=== PATIENT | male | born 1950 | race Caucasian/White ===

== ENCOUNTER 2017-04-03 13:43 | Emergency (ER) | payer MEDICAID ==
[~2017-04-03] VITALS: Ht 170.2 cm; Wt 68.9 kg
[2017-04-03] MEDS ORDERED: KETOROLAC 30 MG/ML VIAL. IM ONE (15:00)
--- NOTE | 2017-04-03 15:14 | RAD ---
Left hip, 2 views, 04/03/2017: History: Pain after a fall No fracture or dislocation is identified. There is considerable disc space narrowing with subchondral sclerosis and spurring. Extensive arterial calcifications are present. IMPRESSION: 1. Moderate degenerative change at the left hip joint. 2. No acute bony abnormality is detected.
--- NOTE | 2017-04-03 15:19 | PHYS DOC ---
Past History Past Medical History: Anxiety, Depression, Hypertension, [place] Past Surgical History: Lumbar Laminectomy, Other Alcohol Use: Occasionally Drug Use: None Adult General Chief Complaint Chief Complaint: HIP PAIN HPI HPI 66-year-old male with a history of coronary artery disease anxiety and depression as well as chronic hip pain with a previous MRI that showed arthritis only. Patient now presents to the emergency department for a second opinion regarding his left hip pain. Patient states he recently moved to town and he is homeless and staying in a long-term. Some friends at the long-term heard about his chronic hip pain and suggested that he come to the emergency department for a second opinion so he called EMS. Patient is very cheerful and states he is not depressed at all and definitely not suicidal because he has gotten a new job and he is the beginning of this new employment opportunity. She did not suffer any new injury and states that he has been ambulatory without difficulty but he knows he has severe arthritis in that hip as previously diagnosed. He continues to be sore Review of Systems Review of Systems Constitutional: Denies fever or chills [] Eyes: Denies change in visual acuity, redness, or eye pain [] HENT: Denies nasal congestion or sore throat [] Respiratory: Denies cough or shortness of breath [] Cardiovascular: No additional information not addressed in HPI [] GI: Denies abdominal pain, nausea, vomiting, bloody stools or diarrhea [] : Denies dysuria or hematuria [] Musculoskeletal: Denies back pain or joint pain [] Integument: Denies rash or skin lesions [] Neurologic: Denies headache, focal weakness or sensory changes [] Endocrine: Denies polyuria or polydipsia [] Current Medications Current Medications Current Medications Medications (Trade) Dose Ordered Sig/[facility] Start Time Stop Time Status Last Admin Dose Admin Ketorolac Tromethamine (Toradol) 30 mg 1X ONCE 04/03/17 15:00 04/03/17 15:01 DC 04/03/17 14:58 30 MG Allergies Allergies Allergies Coded Allergies Type Severity Reaction Last Updated Verified No Known Drug Allergies 04/03/17 No Physical Exam Physical Exam Well-appearing no acute distress unremarkable exam including nontender stable pelvis and nontender hips bilaterally. No pain with internal and external rotation of either leg or with axial loading or normal range of motion. No shortening or external rotation and no asymmetry of the lower extremities. Constitutional: Well developed, well nourished, no acute distress, non-toxic appearance. [] HENT: Normocephalic, atraumatic, bilateral external ears normal, oropharynx moist, no oral exudates, nose normal. [] Eyes: PERRLA, EOMI, conjunctiva normal, no discharge. [] Neck: Normal range of motion, no tenderness, supple, no stridor. [] Cardiovascular:Heart rate regular rhythm, no murmur [] Lungs & Thorax: Bilateral breath sounds clear to auscultation [] Abdomen: Bowel sounds normal, soft, no tenderness, no masses, no pulsatile masses. [] Skin: Warm, dry, no erythema, no rash. [] Back: No tenderness, no CVA tenderness. [] Extremities: No tenderness, no cyanosis, no clubbing, ROM intact, no edema. [] Neurologic: Alert and oriented X 3,no focal deficits noted. [] Psychologic: Affect normal, judgement normal, mood normal. [] Current Patient Data Vital Signs Vital Signs Date Time Temp Pulse Resp B/P (MAP) Pulse Ox O2 Delivery O2 Flow Rate FiO2 04/03/17 15:00 80 16 118/59 (78) 96 Room Air 04/03/17 13:45 98.5 EKG EKG [] Radiology/Procedures Radiology/Procedures X-ray left hip with chronic bony changes consistent with significant osteoarthritis but no acute disease no acute bony injury deformity or lesion. Interpreted by co Course & Med Decision Making Course & Med Decision Making Pertinent Labs and Imaging studies reviewed. (See chart for details) Signs and symptoms consistent with pain from arthritis. X-rays with no acute bony abnormality and advanced osteoarthritis of the left hip joint. No Further workup or treatment indicated. For some reason EMS mention something about suicidal ideation however is appears to be a miscommunication as the patient is abundantly clear that he is not depressed or suicidal and that he called EMS for a second opinion about his worsening chronic hip pain. These were to follow up with his PCP for reevaluation and referral to orthopedics to discuss treatment options as needed. Patient agrees with outpatient follow-up and strict return precautions given [] Dragon Disclaimer Dragon Disclaimer This chart was dictated in whole or in part using Voice Recognition software in a busy, high-work load, and often noisy Emergency Department environment. It may contain unintended and wholly unrecognized errors or omissions. Departure Departure: Impression: Primary Impression: Hip pain, left Additional Impression: Patient requests second opinion Disposition: 01 HOME, SELF-CARE Condition: GOOD Patient Instructions: Hip Pain, Osteoarthritis Additional Instructions: As you described your chronic left hip pain has been worked up extensively including a prior MRI as you mention the results of which were remarkable only for severe arthritis. Your exacerbation of discomfort recently is likely a result of your osteoarthritis, as this is by definition a progressively worsening process over a chronic timeframe. Take 800 mg of ibuprofen every 6 hours as needed for discomfort. He can also take Tylenol if necessary. Follow- up with your doctor for reevaluation and referral to an orthopedic doctor to discuss possible treatment options for your chronic severe hip arthritis. Problem Qualifiers SUKUMAR AGOSTO MD Apr 03, 2017 15:19
[2017-04-03 16:17] VITALS: BP 125/58
== END 2017-04-03 16:50 | disposition home or self-care (01) ==
LOC: ER 13:43
DX: M25.552 Pain in left hip (principal); G89.29 Other chronic pain; I10 Essential (primary) hypertension; I25.2 Old myocardial infarction
CPT/HCPCS: 73502; 96372; 99284; J1885

== ENCOUNTER 2017-04-10 12:22 | Emergency (ER) | payer MEDICAID ==
[~2017-04-10] VITALS: Ht 170.2 cm; Wt 68.9 kg
[2017-04-10] MEDS ORDERED: IV NORMAL SALINE 1,000ML 1,000 ML IV ONE (12:30)
--- NOTE | 2017-04-10 12:40 | PHYS DOC ---
Past History Past Medical History: Anxiety, Depression, Hypertension, [place] Past Surgical History: Lumbar Laminectomy, Other Alcohol Use: Occasionally Drug Use: None Adult General Chief Complaint Chief Complaint: SUICDAL IDEATION HPI HPI Patient is a 66-year-old male presenting to the emergency department via EMS for evaluation of suicidal ideation. He says that if he does not get help that he will kill himself. He says that he has tried harming himself in the past by overdosing approximately 10 years ago and he says his plan to kill himself is cutting his wrists. Patient was seen here on April 03 for hip pain and EMS reports that he was seen at [place] yesterday for suicidal ideation and was discharged with prescriptions for some medications. He shouldn't says that he has no money despite getting Social Security check of almost $900 on the of last month. He is living in a homeless long-term but says that he is out of money because he is paying rent for a place in [place]. I asked him why he is paying rent for a place [place] if he is homeless and he says it is because his dad several months ago and he has been spitting time with him but has stayed in this area since that time. 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 Patient is obviously intoxicated with heavy smell of alcohol. I asked him why he will spend the money to drink alcohol but not fill his 4 dollar medications and he is quite upset and hostile towards me. Review of Systems Review of Systems Constitutional: Denies fever or chills [] Eyes: Denies change in visual acuity, redness, or eye pain [] HENT: Denies nasal congestion or sore throat [] Respiratory: Denies cough or shortness of breath [] Cardiovascular: No additional information not addressed in HPI [] GI: Denies abdominal pain, nausea, vomiting, bloody stools or diarrhea [] : Denies dysuria or hematuria [] Musculoskeletal: Denies back pain. Hip joint pain [] Integument: Denies rash or skin lesions [] Neurologic: Denies headache, focal weakness or sensory changes [] Current Medications Current Medications Current Medications Medications (Trade) Dose Ordered Sig/[facility] Start Time Stop Time Status Last Admin Dose Admin Sodium Chloride 1,000 ml @ 1,000 mls/hr 1X ONCE 04/10/17 12:30 04/10/17 13:29 UNV Allergies Allergies Allergies Coded Allergies Type Severity Reaction Last Updated Verified No Known Drug Allergies 04/03/17 No Physical Exam Physical Exam Constitutional: Well developed, well nourished, no acute distress, non-toxic appearance. [] HENT: Normocephalic, atraumatic, bilateral external ears normal, oropharynx moist, no oral exudates, nose normal. [] Eyes: PERRLA, EOMI, conjunctiva normal, no discharge. [] Neck: Normal range of motion, no tenderness, supple, no stridor. [] Cardiovascular:Heart rate regular rhythm, no murmur [] Lungs & Thorax: Bilateral breath sounds clear to auscultation [] Abdomen: Bowel sounds normal, soft, no tenderness, no masses, no pulsatile masses. [] Skin: Warm, dry, no erythema, no rash. [] Back: No tenderness, no CVA tenderness. [] Extremities: No tenderness, no cyanosis, no clubbing, ROM intact, no edema. [] Neurologic: Alert and oriented X 3, normal motor function, normal sensory function, no focal deficits noted. [] Psychologic: confrontational, + SI EKG EKG [] Radiology/Procedures Radiology/Procedures [] Course & Med Decision Making Course & Med Decision Making Patient is medically cleared from my standpoint and will get a psychiatric assessment. Patient denied SI to psych. They cleared him from psych perspective. Patient is wanting me to RX pain meds. I am not willing to do this given his OD intentions in past and questionable history. Will DC in stable condition. Dragon Disclaimer Dragon Disclaimer This chart was dictated in whole or in part using Voice Recognition software in a busy, high-work load, and often noisy Emergency Department environment. It may contain unintended and wholly unrecognized errors or omissions. Departure Departure: Impression: Primary Impression: Suicidal ideations Additional Impression: Alcohol abuse Disposition: HOME, SELF-CARE Condition: STABLE Referrals: PCP,NO (PCP) Patient Instructions: Suicidal Feelings, How to Help Yourself Additional Instructions: Psychiatry recommended [facility]. Open M-F 9-2 for crisis situations. Problem Qualifiers HECTOR LAYNE DO Apr 10, 2017 12:40
[2017-04-10 13:13] LABS: BASO % 0 % (0-3); EOS # 0.3 x10^3/uL (0.0-0.7); EOS % 3 % (0-3); HEMATOCRIT 41.7 % (39.0-53.0); HEMOGLOBIN 13.8 g/dL (13.0-17.5); LYMPH # 2.1 x10^3/uL (1.0-4.8); LYMPH % 25 % (24-48); MEAN CORPUSCULAR HEMOGLOBIN 30 pg (25-35); MEAN CORPUSCULAR HGB CONC 33 g/dL (31-37); MEAN CORPUSCULAR VOLUME 91 fL (79-100); MONO # 0.5 x10^3/uL (0.0-1.1); MONO % 6 % (0-9); NEUT # 5.5 x10^3uL (1.8-7.7); NEUT % 65 % (31-73); PLATELET COUNT 229 x10^3/uL (140-400); RED BLOOD COUNT 4.59 x10^6/uL (4.30-5.70); WHITE BLOOD COUNT 8.5 x10^3/uL (4.0-11.0)
[2017-04-10 13:22] LABS: ETHANOL 173 mg/dL (0-10); SALIC 2.8 mg/dL (2.8-20.0)
[2017-04-10 13:23] LABS: ACETAMIN < 2.0 mcg/mL (10-30)
[2017-04-10 13:24] LABS: ALBUMIN 3.6 g/dL (3.4-5.0); CALCIUM 8.7 mg/dL (8.5-10.1); CREATININE 0.7 mg/dL (0.7-1.3); GFR 113.5; MAGNESIUM 2.3 mg/dL (1.8-2.4); POTASSIUM 3.4 mmol/L (3.5-5.1); TOTAL BILIRUBIN 0.3 mg/dL (0.2-1.0); TOTAL PROTEIN 7.2 g/dL (6.4-8.2)
[2017-04-10 14:02] LABS: BARBITURATES NEG (NEG); BENZODIAZEPINES NEG (NEG); CANNABINOIDS NEG (NEG); COCAINE NEG (NEG); METHADONE NEG (NEG); OPIATES NEG (NEG); PHENCYCLIDINE NEG (NEG)
[2017-04-10 14:03] LABS: AMPHETAMINE/METHAMPHETAMINE NEG (NEG)
[2017-04-10] MEDS ORDERED: KETOROLAC 30 MG/ML VIAL. IV ONE (14:15)
[2017-04-10 14:25] VITALS: BP 142/82
== END 2017-04-10 17:30 | disposition home or self-care (01) ==
LOC: EEVIPCON 12:22 → ER 12:22
DX: R45.851 Suicidal ideations (principal); F10.10 Alcohol abuse, uncomplicated; I10 Essential (primary) hypertension; F41.9 Anxiety disorder, unspecified; F32.9 Major depressive disorder, single episode, unspecified; I25.2 Old myocardial infarction
CPT/HCPCS: 36415; 80053; 80307; 82550; 83690; 83735; 84443; 85025; 96361; 96374; 99284; G0480; J1885; G0479; J7030